=== PATIENT | female | born 1990 | race Caucasian/White ===

== ENCOUNTER 2018-11-10 00:14 | Emergency (ER) | payer SELFPAY ==
[~2018-11-10] VITALS: Ht 175.3 cm; Wt 88.0 kg
[2018-11-10] MEDS ORDERED: IV NS 0.9% 1,000 ML BAG IV ONE (00:30)
--- NOTE | 2018-11-10 00:30 | NUR ---
NHUNG FROM HOME WITH FRIEND. TO ER BED 9. AAOX4. NO RESP DISTRESS NOTED. CAME IN FROM SYNCOPAL EPISODE AND OBTAINED A LACERATION ON L FOREHEAD. PER PT, SHE FELT DIZZY SHE WAS OPENING HER DOOR AND THAT WAS THE LAST THING SHE REMEMBERED. PER FRIEND, SHE WENT IN TO HER APARTMENT AND FELL FROM THE STAIR. PT IS COMPLAING OF RR BACK, R HIP AND R FOOT PAIN. LACERATION NOTED AT 3.5CM LONG AND 0.5CM WIDE. MIN BLEEDING NOTED. AWAITING MD FOR EVAL
[2018-11-10 00:44] LABS: BASOPHILS # (AUTO) 0.1 /CMM (0.0-0.2); BASOPHILS % (AUTO) 0.8 % (0.0-2.0); EOSINOPHILS % (AUTO) 0.2 % (0.0-6.0); HEMATOCRIT 39 % (33-45); HEMOGLOBIN 13.5 g/dL (11.5-14.8); LYMPHOCYTES # (AUTO) 2.8 /CMM (0.8-4.8); LYMPHOCYTES % (AUTO) 26.1 % (20.0-44.0); MEAN CORPUSCULAR HGB CONC 34 g/dl (31.0-36.0); MEAN CORPUSCULAR VOLUME 91 fL (82-100); MONOCYTES # (AUTO) 0.7 /CMM (0.1-1.30); MONOCYTES % (AUTO) 6.7 % (2.0-12.0); NEUTROPHILS % (AUTO) 66.2 % (43.0-81.0); PLATELET COUNT (AUTO) 280 /CMM (150-450); RED BLOOD CELL COUNT(AUTO) 4.32 MIL/uL (4.0-5.2); WHITE BLOOD COUNT (AUTO) 10.6 K/uL (4.3-11.0)
[2018-11-10 00:52] LABS: CALCIUM, SERUM 9.1 mg/dL (8.5-10.1); CARBON DIOXIDE 29 mmol/L (21-32); CHLORIDE 103 mmol/L (98-107); GLUCOSE 105 mg/dL (74-106); POTASSIUM 3.1 mmol/L (3.5-5.1); SODIUM SERUM 141 mmol/L (136-145); UREA NITROGEN, BLOOD 10 mg/dL (7-18)
[2018-11-10 00:58] LABS: ALANINE AMINOTRANSFERASE 20 U/L (12-78); ALBUMIN 3.6 g/dL (3.4-5.0); ALKALINE PHOSPHATASE 45 U/L (46-116); ASPARTATE AMINOTRANSFERASE 21 U/L (15-37); BILIRUBIN,DIRECT 0.1 mg/dL (0.0-0.2); BILIRUBIN,TOTAL 0.3 mg/dL (0.2-1.0); TOTAL PROTEIN, SERUM 6.2 g/dL (6.4-8.2)
[2018-11-10] MEDS ORDERED: MORPHINE SULFATE INJ 2 MG/ML DISP.SYRIN IV ONE (01:00)
[2018-11-10] MEDS ORDERED: ONDANSETRON HCL/PF 4 MG/2 ML VIAL IV ONE (01:00)
--- NOTE | 2018-11-10 01:02 | NUR ---
MD MADE AWARE OF ORTHOSTATIC VS RESULT. PT IS NEGATIVE FOR ORTHOSTATIC HYPOTENSION
--- NOTE | 2018-11-10 01:20 | NUR ---
EMT AT BEDSIDE OF WOUND IRRIGATION. PT PRE MEDICATED PRIOR TO PROCEDURE
[2018-11-10] MEDS ORDERED: LIDOCAINE 1%-EPI 1:100,000 20 ML VIAL ONE (01:57)
--- NOTE | 2018-11-10 02:15 | NUR ---
AT BEDSIDE FOR SUTURE
--- NOTE | 2018-11-10 03:15 | NUR ---
DRESSING APPLIED BACITRACIN OINTMENT, TELFA AND WRAPPED WITH KERLIX
[2018-11-10 03:16] VITALS: BP 127/64
[2018-11-10] MEDS ORDERED: MORPHINE SULFATE INJ 2 MG/ML DISP.SYRIN ONE (07:42)
== END 2018-11-10 03:10 | disposition home or self-care (01) ==
LOC: ER 00:17
DX: S01.112A Laceration without foreign body of left eyelid and periocular area, initial encounter (principal); R55 Syncope and collapse; F12.10 Cannabis abuse, uncomplicated; F32.9 Major depressive disorder, single episode, unspecified; W10.8XXA Fall (on) (from) other stairs and steps, initial encounter; Y93.89 Activity, other specified; Y92.89 Other specified places as the place of occurrence of the external cause; Y99.8 Other external cause status
CPT/HCPCS: 12013; 36415; 70450; 71045; 80048; 80076; 82962; 84484; 84703; 85025; 85730; 93005; 96361; 96374; 96375; 99284; A6403 ×2; J2270; J3490; J7030